=== PATIENT | female | born 1990 | race Caucasian/White ===

== ENCOUNTER 2022-10-19 17:34 | Emergency (ER) | payer OTHER, SELFPAY ==
[2022-10-19 18:47] VITALS: BP 125/80; PULSE 88; RESP 16; TEMP 36.6; O2SAT 98; BMI 32.6
--- NOTE | 2022-10-19 18:47 | ED.ANIMALBIT ---
HPI - Animal Bite General Chief Complaint: Wound/Laceration Stated Complaint: Dog bite on lip Time Seen by Provider: 10/19/22 21:50 Source: patient, RN notes reviewed and old records reviewed Mode of arrival: ambulatory Limitations: no limitations History of Present Illness HPI narrative: 32-year-old female presents for evaluation of a laceration to her lower lip. Patient was trying to put her dog into a truck for She bent down to pick the dog up and it bit her on the lip She sustained a laceration in the lower lip mostly to the right side going to approximately the midline This does involve the vermilion border of the right lower lip Patient's animal is up-to-date on rabies vaccines Her tetanus was updated by triage provider Related Data Previous Rx's Medication Instructions Recorded amoxicillin 875 mg-potassium 1 tab PO BID #14 tabs 10/19/22 clavulanate 125 mg tablet Allergies Allergy/AdvReac Type Severity Reaction Status Date / Time No Known Allergies Allergy Verified 10/19/22 18:49 Review of Systems Integumentary/Breasts: Comments: Right lower lip laceration PMFSH Social History Social History Smoked in Last 30 Days: No Use of substances other than those prescribed or required for medical reasons: No Advance Directives: No Advance Directives Information Provided: No Patient : No Physical Exam ED Vital Signs: Vital Signs - 24 hr 10/19/22 18:47 10/19/22 20:08 Temperature 97.9 F 98.7 F Pulse Rate 88 68 Respiratory Rate 16 16 Blood Pressure 125/80 117/68 Pulse Oximetry 98 100 Oxygen Delivery Method Room Air Room Air BMI result Body Mass Index 32.6 Const General: healthy appearing, comfortable, no acute distress, alert and awake Nutritional Appearance: well nourished Orientation/consciousness: patient oriented x3 HENMT Other: Patient has a v-shaped laceration to the right lower lip that crosses vermilion border. It is not through and through. There is no involvement of the mucosa of the inner lip Eyes Eyelids: Yes eyelids normal Conjunctivae: conjunctivae normal Sclerae: sclerae normal Corneas: corneas normal Pupils: Equal, round and reactive pupils present EOM: EOMs intact bilaterally Resp Effort & Inspection: normal respiratory effort, able to speak in complete sentences and not labored Skin General skin exam: elasticity normal Neuro General: patient oriented x3 Cranial nerves: Yes Equal, round and reactive pupils present and Yes Bilaterally intact EOM present Cognition (Neuro): normal cognition Extrem Other: Moving all extremities well without any obvious deformities Course Course Course Narrative: This is an RME: Additional HPI, ROS, PE not included below will be deferred to primary provider. Patient is a 32-year-old female who presents emergency department evaluation dog bite to the lip, this is her personal animal, up-to-date on rabies vaccination. Has scant active bleeding from the lip. Unsure of last tetanus vaccination. Plan: Update TDap, placed in waiting room pending bed availability for suture repair Reevaluation(s) Reevaluation #1: Patient was offered 1 time dose of Augmentin in the ER and she declined and will slat pickler at the pharmacy as soon as possible Medications Administered Discontinued Medications Generic Name Dose Route Start Last Admin Trade Name Freq PRN Reason Stop Dose Admin Diphtheria/Tetanus/Acell Pertussis 0.5 ml 10/19/22 18:49 10/19/22 20:03 Diphth,Pertus(Acell),Tet Adult 0.5 Ml Syringe IM 10/19/22 18:50 0.5 ml .ONCE ONE Administration Medical Decision Making Medical Decision Making [facility] Narrative: Unfortunately, the patient was bit in the mouth by her own dog. This involves remain border and is a facial injury the and person, despite the fact of the dog bite, we will suture the wound closed. Discussed risks and benefits with the patient. The wound will be extensively irrigated the patient will require Augmentin. Patient's tetanus was up-to-date Differential Diagnosis Dog bite Laceration Puncture wound Skin tear Procedures Laceration Laceration 1: Site: lip (Right lower lip) Side (If applicable): right Size (cm): 3 Description: linear (V-shaped) Depth: simple, single layer Local Anesthetic: lidocaine 1% Amount of anesthesia used (mL): 4 Pre-repair: wound explored and irrigated extensively Skin layer closed with: nylon Size (cm): 6-0 Number of sutures: 6 Discharge Plan Discharge Clinical Impression: Laceration of lower lip, complicated Patient Disposition: Home, Self-Care Instructions: Facial Laceration (ED) Additional Instructions: You had 6 sutures placed today Take Augmentin twice daily for the next 7 days Apply bacitracin once daily to the affected area The sutures can be removed in 5-7 days Dog bites have a very high risk for infection if sutured, however due to the bite being on your lip, not suturing it would have significant cosmetic implications and would likely not heal well. You would benefit from following up with a plastic surgeon to ensure proper healing Unfortunately, we do not have any plastic surgeons at this facility In the meantime, if there is any redness, purulence or increased pain or swelling return to the ER immediately as it is likely infected Your tetanus shot was updated today Prescriptions: New amoxicillin-pot clavulanate 875-125 mg tablet 1 tab PO BID Qty: 14 0RF Stand Alone Forms: Work/School Release
[2022-10-19] MEDS: Diphth,Pertus(ACell),Tet Adult 0.5 ML SYRINGE IM (20:03)
[2022-10-19 20:08] VITALS: BP 117/68; PULSE 68; RESP 16; TEMP 37.1; O2SAT 100
[2022-10-19] MEDS: Lidocaine HCl 1 % MPF 5 ML VIAL INFILTRATI (23:58)
== END 2022-10-19 23:58 | disposition home or self-care (01) ==
PROVIDERS: Emergency Provider Emergency Medicine Emergency Medical Services
DX: S01.551A Open bite of lip, initial encounter (principal); S00.511A Abrasion of lip, initial encounter; W54.0XXA Bitten by dog, initial encounter; Y93.9 Activity, unspecified; Y92.9 Unspecified place or not applicable; Y99.9 Unspecified external cause status; Z23 Encounter for immunization
CPT/HCPCS: 12052; 90471; 90715; 99284

== ENCOUNTER 2023-07-11 16:48 | Emergency (ER) | payer OTHER, SELFPAY ==
--- NOTE | ~2023-07-11 | US_ITS ---
EXAMINATION: US ABDOMEN COMPLETE CLINICAL INFORMATION: Abdominal pain, back pain, . COMPARISON: None available. TECHNIQUE: Real-time imaging of the abdominal viscera. FINDINGS: PANCREAS: The visualized proximal portion of the pancreas is unremarkable. The distal portion is obscured secondary to overlying bowel gas. ABDOMINAL AORTA: The proximal, mid, and distal segments are normal in caliber. INFERIOR VENA CAVA: Visualized portions are normal. LIVER: The liver is normal in size. The liver contour is normal. Parenchymal echogenicity is normal. No focal hepatic lesion. There is no intrahepatic biliary duct dilatation seen. GALLBLADDER: The gallbladder is physiologically distended. Layering gallstones are present. Gallbladder wall thickness is within normal limits. No pericholecystic fluid identified. Right upper quadrant tenderness was reported during the exam. COMMON BILE DUCT: Normal in caliber measuring 0.4 cm in diameter. RIGHT KIDNEY: Mild hydronephrosis. No renal calculi or focal parenchymal lesions. The kidney measures 12.5 cm in maximum dimension. LEFT KIDNEY: No hydronephrosis. No renal calculi or focal parenchymal lesions. The kidney measures 11.4 cm in maximum dimension. SPLEEN: Normal. The spleen measures 11.3 cm in maximum dimension. FREE FLUID: None. US/US abdomen complete IMPRESSION: 1. Cholelithiasis without additional sonographic findings of cholecystitis. However, right upper quadrant tenderness was reported during the exam, and the possibility of early acute cholecystitis therefore cannot be excluded in the proper clinical setting. 2. Mild right hydronephrosis, which may be physiologic in the setting of .
--- NOTE | ~2023-07-11 | US_ITS ---
EXAMINATION: US , LIMITED CLINICAL INFORMATION: 19 weeks , abdominal pain, eval move COMPARISON: None available. TECHNIQUE: Limited sonographic evaluation of was performed. FINDINGS: Single live intrauterine is identified in breech presentation at this time. movement is observed. heart beat is identified with a rate of 149 bpm. Placenta is located posteriorly. Cervix appears closed. Amniotic fluid index is 17.0 cm. US/US OB limited IMPRESSION: Single live intrauterine , with movement observed.
[2023-07-11 16:56] VITALS: BP 106/50; PULSE 73; RESP 20; TEMP 37; O2SAT 100; BMI 33.2
--- NOTE | 2023-07-11 16:57 | ED.GENADULT ---
HPI - General Adult General Chief complaint: Nausea/Vomiting/Diarrhea Stated complaint: vomiting severe back pain 19 wks Time Seen by Provider: 07/11/23 18:24 Source: patient Mode of arrival: ambulatory Limitations: no limitations History of Present Illness HPI narrative: 32 yo female with no known medical history here with complaints of vomiting, diffuse abdominal pain, mid back pain x 30 min-1hr. At 115pm she did have mac/cheese, blueberries, taquito and green beans. No sick contact or recent travel. No urinary symptoms, vaginal bleeding. Currently 19 weeks . XIOMARA 12/03. This is her first , no complications with this . Her care is at [facility] Related Data Previous Rx's Medication Instructions Recorded amoxicillin 875 mg-potassium 1 tab PO BID #14 tabs 10/19/22 clavulanate 125 mg tablet ondansetron 4 mg disintegrating 4 mg PO Q6H PRN nausea and 07/12/23 tablet vomiting #15 tabs Allergies Allergy/AdvReac Type Severity Reaction Status Date / Time No Known Allergies Allergy Verified 10/19/22 18:49 Review of Systems Review of Systems: Yes all other systems are reviewed and are negative Constitutional: Constitutional: Reports no additional constitutional complaints, Denies body ache(s), Denies chills, Denies fever(s), Denies headache(s) and Denies weakness Eyes: Eyes: Reports no additional eye complaints and Denies change in vision ENT: Reports system reviewed and no additional complaints, except as documented, Denies dizziness, Denies headache(s), Denies nasal congestion, Denies nasal discharge and Denies neck pain Cardiovascular: Cardiovascular: Reports no additional cardiovascular complaints, Denies chest pain, Denies leg edema and Denies dyspnea Respiratory: Respiratory: Reports no additional respiratory complaints, Denies cough and Denies dyspnea Gastrointestinal: Gastrointestinal: Reports no additional gastrointestinal complaints, Reports abdominal pain, Denies diarrhea, Reports nausea and Reports vomiting Genitourinary: Genitourinary: Reports no additional female genitourinary complaints and Denies urinary incontinence Musculoskeletal: Musculoskeletal: Reports no additional musculoskeletal complaints, Reports back pain, Denies arthralgias, Denies joint swelling, Denies neck pain, Denies numbness and Denies tingling Integumentary/Breasts: Skin/Breast: Reports system reviewed and no additional complaints, except as docu and Denies rash Neurologic: Reports system reviewed and no additional complaints, except as documented, Denies Abnormal speech present, Denies dizziness, Denies headache(s), Denies numbness, Denies tingling and Denies weakness PMFSH Past Medical History Attestation statement: The following information was validated with the patient. Source: old records reviewed and nursing notes reviewed Social History Social History Smoked in Last 30 Days: No Use of substances other than those prescribed or required for medical reasons: No Advance Directives: No Advance Directives Information Provided: No Patient : Yes Physical Exam ED Vital Signs: Vital Signs - 24 hr 07/11/23 16:56 07/11/23 18:27 07/11/23 20:48 Temperature 98.6 F 98.1 F 98.5 F Pulse Rate 73 64 59 Respiratory Rate 20 16 16 Blood Pressure 106/50 L 98/55 L Pulse Oximetry 100 100 97 Oxygen Delivery Method Room Air Room Air Room Air 07/11/23 22:00 07/12/23 00:39 Temperature 99.1 F 99.1 F Pulse Rate 63 75 Respiratory Rate 16 16 Blood Pressure 98/46 L 109/55 L Pulse Oximetry 98 99 Oxygen Delivery Method Room Air Room Air BMI result Body Mass Index 33.2 Const General: cooperative, healthy appearing, comfortable and no acute distress Orientation/consciousness: patient oriented x3 Limitations: no limitations HENMT Head: Yes normal to inspection Ears: hearing grossly normal bilaterally General nose exam: Normal external nose present Face and sinus: Yes normal facial exam Mouth: Normal oral and palatal mucosa present Throat: Yes posterior oropharynx normal Eyes General: appearance normal, both eyes and all related structures Pupils: Equal, round and reactive pupils present Neck Neck: Yes normal visual inspection Chest Chest palpation & inspection: normal inspection of the chest Resp Effort & Inspection: normal respiratory effort Auscultation: clear to auscultation bilaterally Cardio Rate: regular rate Rhythm: regular rhythm Peripheral pulses: Peripheral pulses 2+ throughout GI Inspection: Yes normal to inspection Palpation (GI): Soft to palpation, Tenderness to palpation present (GI) (upper-no rebound or guarding ) and no guarding Auscultation: normal bowel sounds General: Yes no CVA tenderness Back/Spine/Pelvis Back: no CVA tenderness Thoracic/Lumbar Spine: thoracic and lumbar spine normal to inspection Skin General skin exam: no rashes or lesions noted Neuro General: patient oriented x3, no focal motor deficits and normal sensation to monofilament Cranial nerves: Yes Equal, round and reactive pupils present Cognition (Neuro): normal cognition Speech: No Abnormal speech present Gait exam (Neuro): Normal gait present Motor exam (neuro): 5/5 motor strength present throughout Extrem General: Yes normal to inspection Course Course Course Narrative: This is a rapid medical exam: Additional HPI, ROS, PE not included below will be deferred to primary provider. Patient is a 32-year-old female 19 weeks with XIOMARA of 12/03/23 presenting to the ED with complaint of persistent vomiting for the past 30 minutes. [place] nauseated for about 30-45 minutes prior to vomiting. Ate macaroni and cheese and green beans which patient states may have been too old for lunch. Diffuse abdominal pain. States has not felt movements so far in her . BP 106/50 in triage, HR 72. care at [facility]. Has had 12 week u/s. heart rate 148 in triage. Plan: viral swabs, labs, UA, zofran Reevaluation(s) Reevaluation #1: 1900-continued pain and vomiting. Will obtain ultrasound. Will premedicate with analgesia and antiemetic. Reevaluation #2: 1945-initial lactic was elevated. 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 This is likely secondary to vomiting and not from infection. Will plan for repeat after fluids. Ultrasound shows gallstones with no evidence of acute cholecystitis. Single intrauterine seen on ultrasound with good movement heart rate 149. Patient reports after 4 mg of morphine and 2 rounds of antiemetics relief in pain. Will plan to monitor and reassess Reevaluation #3: 0000-repeat lactic is negative. Patient is able to tolerate amairani dani with no additional vomiting episodes. Her pain is much improved. I reviewed the findings of her ultrasound. Recommend follow-up outpatient general surgery. Discussed dietary changes at home and when to return to the emergency room. Comfortable plan for discharge home Medications Administered Discontinued Medications Generic Name Dose Route Start Last Admin Trade Name Freq PRN Reason Stop Dose Admin Diphenhydramine HCl 25 mg 07/11/23 19:02 07/11/23 19:19 Diphenhydramine Hcl 50 Mg/Ml Vial IVPUSH 07/11/23 19:03 25 mg ONCE ONE Administration Sodium Chloride 1,000 mls @ 999 mls/hr 07/11/23 18:30 07/11/23 19:40 Ns IV 07/11/23 19:30 Infused .Q1H1M DAMI Infusion Sodium Chloride 1,000 mls @ 999 mls/hr 07/11/23 19:45 07/11/23 21:03 Ns IV 07/11/23 20:45 Infused .Q1H1M STA Infusion Metoclopramide HCl 10 mg 07/11/23 19:02 07/11/23 19:18 Metoclopramide Hcl 10 Mg/2 Ml Vial IVPUSH 07/11/23 19:03 10 mg ONCE ONE Administration Morphine Sulfate 2 mg 07/11/23 18:29 07/11/23 18:35 Morphine Sulfate 2 Mg/Ml Cartridge IVPUSH 07/11/23 18:30 2 mg ONCE ONE Administration Protocol Morphine Sulfate 2 mg 07/11/23 19:02 07/11/23 19:22 Morphine Sulfate 2 Mg/Ml Cartridge IVPUSH 07/11/23 19:03 2 mg ONCE ONE Administration Protocol Ondansetron HCl 4 mg 07/11/23 17:03 07/11/23 17:18 Ondansetron Odt 4 Mg Tab.Rapdis TRANSLINGU 07/11/23 17:04 4 mg ONCE ONE Administration Ondansetron HCl 4 mg 07/11/23 18:29 07/11/23 18:35 Ondansetron Hcl 4 Mg/2 Ml Vial IVPUSH 07/11/23 18:30 4 mg ONCE ONE Administration Medical Decision Making Medical Decision Making MDM Narrative: 32 yo female with no known medical history here with complaints of vomiting, upper abdominal pain, mid back pain x 30 min-1hr. At 115pm she did have mac/cheese, blueberries, taquito and green beans. No sick contact or recent travel. No urinary symptoms, vaginal bleeding. Currently 19 weeks . XIOMARA 8. This is her first , no complications with this . Her care is at [facility] Diffusely tender. No CVAT Will obtain UA, labs Will give IVF, antiemetic, analgesia Differential Diagnosis Differential Diagnoses: The differential diagnosis associated with the presentation includes Low suspicion for acute appendicitis with no focal right lower quadrant abdominal pain Consider renal colic, pyelonephritis, cholecystitis Admission/Observation Consideration of admission/observation: Escalation of care including admission/observation considered Gallstones seen on ultrasound with no evidence of acute cholecystitis. Pain is improved, tolerating p.o., afebrile. She can follow-up outpatient with General surgery. No need for admission Lab Data MDM Lab Attestation statement: I reviewed the patient's lab results. 07/11/23 17:10 07/11/23 17:10 Labs: Lab Results 07/11/23 07/11/23 07/11/23 Range/Units 17:10 17:21 21:47 WBC 10.2 (4.8-10.8) X10*3/uL RBC 4.21 (4.20-5.50) X10*6/uL Hgb 12.1 (12.0-16.0) g/dl Hct 36.4 L (37.0-47.0) % MCV 86.5 (80.0-98.0) fL MCH 28.7 (27.0-33.0) pg MCHC 33.2 (31.0-35.0) g/dl RDW 13.8 (11.0-16.0) % Plt Count 200 (160-400) X10*3/uL MPV 10.7 (9.4-12.3) fL Immature Gran % (Auto) 0.7 H (0.0-0.4) % Neut % (Auto) 65.5 (45-73) % Lymph % (Auto) 24.3 (20-40) % Simpson % (Auto) 8.1 (2-11) % Eos % (Auto) 1.1 (0-4) % Baso % (Auto) 0.3 (0-2) % Lymph # (Auto) 2.5 (1.2-4.9) X10*3/uL Simpson # (Auto) 0.8 (0.1-1.2) X10*3/uL Eos # (Auto) 0.1 (0.0-0.4) X10*3/uL Baso # (Auto) 0.0 (0.0-0.2) X10*3/uL Abs Immat Gran (auto) 0.07 H (0.00-0.03) X10*3/uL Absolute Neuts (auto) 6.7 (2.0-8.3) x10*3/uL Absolute Nucleated RBC 0.000 (0.0-0.012) X10*3/uL Nucleated RBC % (auto) 0.0 (0.0-0.2) /100WBC Sodium 140 (135-145) mmol/L Potassium 3.6 (3.3-5.1) mmol/L Chloride 108 (96-108) mmol/L Carbon Dioxide 24 (22-29) mmol/L Anion Gap 12 (12-20) BUN 10 (9-16) mg/dL Creatinine 0.73 (0.5-1.4) mg/dL Estim Creat Clear Calc 117.6 Estimated GFR > 60 Random Glucose 97 (60-115) mg/dL Lactic Acid 3.4 H* (0.5-2.0) mmol/L Lactic Acid F/U @ 2Hr 2.5 H* (0.5-2.0) mmol/L Lactic Acid F/U @ 4Hr (0.5-2.0) mmol/L Calcium 9.4 (8.4-10.2) mg/dL Magnesium 1.7 (1.6-2.6) mg/dL Total Bilirubin 0.1 (0.0-1.0) mg/dL AST 27 (5-31) U/L ALT 59 H (0-31) U/L Alkaline Phosphatase 70 (39-117) U/L Total Protein 6.7 (6.5-8.0) g/dL Albumin 3.5 (3.5-5.0) g/dL Urine Color Urine Appearance Urine pH (5.0-9.0) Ur Specific [place] (1.005-1.025) Urine Protein (Neg-Trace) mg/dL Urine Glucose (UA) (Negative) mg/dL Urine Ketones (Negative) mg/dL Urine Blood (Negative) Urine Nitrite (Negative) Ur Leukocyte Esterase (Negative) Urine RBC (0-2) /HPF Urine WBC (0-5) /HPF Ur Squamous Epith Cells (0-2) /HPF Urine Bacteria (None Seen) Hyaline Casts (0-2) /LPF Influenza Type A (PCR) NEGATIVE (Negative) Influenza Type B (PCR) NEGATIVE (Negative) RSV RNA Qual (PCR) NEGATIVE (Negative) SARS-CoV-2 RNA (RT-PCR) NEGATIVE (Negative) 07/11/23 07/12/23 Range/Units 22:05 00:14 WBC (4.8-10.8) X10*3/uL RBC (4.20-5.50) X10*6/uL Hgb (12.0-16.0) g/dl Hct (37.0-47.0) % MCV (80.0-98.0) fL MCH (27.0-33.0) pg MCHC (31.0-35.0) g/dl RDW (11.0-16.0) % Plt Count (160-400) X10*3/uL MPV (9.4-12.3) fL Immature Gran % (Auto) (0.0-0.4) % Neut % (Auto) (45-73) % Lymph % (Auto) (20-40) % Simpson % (Auto) (2-11) % Eos % (Auto) (0-4) % Baso % (Auto) (0-2) % Lymph # (Auto) (1.2-4.9) X10*3/uL Simpson # (Auto) (0.1-1.2) X10*3/uL Eos # (Auto) (0.0-0.4) X10*3/uL Baso # (Auto) (0.0-0.2) X10*3/uL Abs Immat Gran (auto) (0.00-0.03) X10*3/uL Absolute Neuts (auto) (2.0-8.3) x10*3/uL Absolute Nucleated RBC (0.0-0.012) X10*3/uL Nucleated RBC % (auto) (0.0-0.2) /100WBC Sodium (135-145) mmol/L Potassium (3.3-5.1) mmol/L Chloride (96-108) mmol/L Carbon Dioxide (22-29) mmol/L Anion Gap (12-20) BUN (9-16) mg/dL Creatinine (0.5-1.4) mg/dL Estim Creat Clear Calc Estimated GFR Random Glucose (60-115) mg/dL Lactic Acid (0.5-2.0) mmol/L Lactic Acid F/U @ 2Hr (0.5-2.0) mmol/L Lactic Acid F/U @ 4Hr 1.2 (0.5-2.0) mmol/L Calcium (8.4-10.2) mg/dL Magnesium (1.6-2.6) mg/dL Total Bilirubin (0.0-1.0) mg/dL AST (5-31) U/L ALT (0-31) U/L Alkaline Phosphatase (39-117) U/L Total Protein (6.5-8.0) g/dL Albumin (3.5-5.0) g/dL Urine Color Yellow Urine Appearance Turbid Urine pH 7.5 (5.0-9.0) Ur Specific [place] 1.015 (1.005-1.025) Urine Protein Trace (Neg-Trace) mg/dL Urine Glucose (UA) 250 H (Negative) mg/dL Urine Ketones 80 (Negative) mg/dL Urine Blood Negative (Negative) Urine Nitrite Negative (Negative) Ur Leukocyte Esterase Small (1+) H (Negative) Urine RBC 0-2 (0-2) /HPF Urine WBC 0-5 (0-5) /HPF Ur Squamous Epith Cells 6-10 (0-2) /HPF Urine Bacteria 1+ (None Seen) Hyaline Casts 6-10 (0-2) /LPF Influenza Type A (PCR) (Negative) Influenza Type B (PCR) (Negative) RSV RNA Qual (PCR) (Negative) SARS-CoV-2 RNA (RT-PCR) (Negative) Independent Interpretation I performed an independent interpretation of an: Ultrasound Interpretation: I independently reviewed the ultrasound agree with the radiology report Radiology Impression Discussion of test interpretation with radiology: I have reviewed the radiologist's reading. Radiologist Impression: [address] [address] Ultrasound Report Signed Patient: Cheli Decker MR#: [id number] : 1990 Acct:[id number] Age/Sex: 32 / F ADM Date: 07/11/23 Loc: .ED Attending Dr: Ordering Physician: Taryn Reece NP Date of Service: 07/11/23 Procedure(s): US OB limited Accession Number(s): [id number] cc: Physician,Unknown ; Taryn Reece [employer]WER CLEANER~ EXAMINATION: US , LIMITED CLINICAL INFORMATION: 19 weeks , abdominal pain, eval move COMPARISON: None available. TECHNIQUE: Limited sonographic evaluation of was performed. FINDINGS: Single live intrauterine is identified in breech presentation at this time. movement is observed. heart beat is identified with a rate of 149 bpm. Placenta is located posteriorly. Cervix appears closed. Amniotic fluid index is 17.0 cm. US/US OB limited IMPRESSION: Single live intrauterine , with movement observed. [place] [id number] Ultrasound Report Signed Patient: Cheli Decker MR#: [id number] : 1990 Acct:[id number] Age/Sex: 32 / F ADM Date: 07/11/23 Loc: HO.ED Attending Dr: Ordering Physician: Taryn Reece NP Date of Service: 07/11/23 Procedure(s): US abdomen complete Accession Number(s): [id number] cc: Physician,Unknown ; Taryn Reece [employer]WER CLEANER~ EXAMINATION: US ABDOMEN COMPLETE CLINICAL INFORMATION: Abdominal pain, back pain, . COMPARISON: None available. TECHNIQUE: Real-time imaging of the abdominal viscera. FINDINGS: PANCREAS: The visualized proximal portion of the pancreas is unremarkable. The distal portion is obscured secondary to overlying bowel gas. ABDOMINAL AORTA: The proximal, mid, and distal segments are normal in caliber. INFERIOR VENA CAVA: Visualized portions are normal. LIVER: The liver is normal in size. The liver contour is normal. Parenchymal echogenicity is normal. No focal hepatic lesion. There is no intrahepatic biliary duct dilatation seen. GALLBLADDER: The gallbladder is physiologically distended. Layering gallstones are present. Gallbladder wall thickness is within normal limits. No pericholecystic fluid identified. Right upper quadrant tenderness was reported during the exam. COMMON BILE DUCT: Normal in caliber measuring 0.4 cm in diameter. RIGHT KIDNEY: Mild hydronephrosis. No renal calculi or focal parenchymal lesions. The kidney measures 12.5 cm in maximum dimension. LEFT KIDNEY: No hydronephrosis. No renal calculi or focal parenchymal lesions. The kidney measures 11.4 cm in maximum dimension. SPLEEN: Normal. The spleen measures 11.3 cm in maximum dimension. FREE FLUID: None. US/US abdomen complete IMPRESSION: 1. Cholelithiasis without additional sonographic findings of cholecystitis. However, right upper quadrant tenderness was reported during the exam, and the possibility of early acute cholecystitis therefore cannot be excluded in the proper clinical setting. 2. Mild right hydronephrosis, which may be physiologic in the setting of . Independent Historian Clinical information obtained from an independent historian. History obtained from or confirmed by: Spouse Discharge Plan Discharge Clinical Impression: Cholelithiasis Patient Disposition: Home, Self-Care Instructions: Gallstones (ED) Additional Instructions: Your ultrasound shows gallstones. Please eat a very low-fat diet. Please return for any severe abdominal pain, vomiting or fever. Prescriptions: New ondansetron 4 mg tablet,disintegrating 4 mg PO Q6H PRN (Reason: nausea and vomiting) Qty: 15 0RF No Action amoxicillin-pot clavulanate 875-125 mg tablet 1 tab PO BID Qty: 14 0RF Referrals: John Mayo MD [Physician] - 1 week Physician,Unknown J [Primary Care Provider] - 1 week
[2023-07-11 17:16] LABS: MANUAL DIFF FLAG NO
[2023-07-11 17:17] LABS: Basophils Percent Auto 0.3 % (0-2); Eosinophils Absolute Auto 0.1 X10*3/uL (0.0-0.4); Eosinophils Percent Auto 1.1 % (0-4); Hematocrit 36.4 % (37.0-47.0); Hemoglobin 12.1 g/dl (12.0-16.0); Imm Gran Abs Auto 0.07 X10*3/uL (0.00-0.03); Imm Gran Pct Auto 0.7 % (0.0-0.4); Lymphocytes Absolute Auto 2.5 X10*3/uL (1.2-4.9); Lymphocytes Percent Auto 24.3 % (20-40); Mean Corpuscular HGB Conc 33.2 g/dl (31.0-35.0); Mean Corpuscular Hemoglobin 28.7 pg (27.0-33.0); Mean Corpuscular Volume 86.5 fL (80.0-98.0); Mean Platelet Volume 10.7 fL (9.4-12.3); Monocytes Absolute Auto 0.8 X10*3/uL (0.1-1.2); Monocytes Percent Auto 8.1 % (2-11); Neutrophils Absolute Auto 6.7 x10*3/uL (2.0-8.3); Neutrophils Percent Auto 65.5 % (45-73); Platelet Count 200 X10*3/uL (160-400); Red Blood Count 4.21 X10*6/uL (4.20-5.50); Red Cell Distribution Width 13.8 % (11.0-16.0); White Blood Count 10.2 X10*3/uL (4.8-10.8)
[2023-07-11] MEDS: Ondansetron ODT 4 MG TAB.RAPDIS TRANSLINGU (17:18)
--- NOTE | 2023-07-11 17:21 | PC.NURSE ---
FHR obtained in triage - HR 148
[2023-07-11 17:30] LABS: Alanine Aminotransferase 59 U/L (0-31); Albumin Level 3.5 g/dL (3.5-5.0); Alkaline Phosphatase 70 U/L (39-117); Anion Gap 12 (12-20); Aspartate Amino Transferase 27 U/L (5-31); Bilirubin Total 0.1 mg/dL (0.0-1.0); Blood Urea Nitrogen 10 mg/dL (9-16); Calcium 9.4 mg/dL (8.4-10.2); Carbon Dioxide 24 mmol/L (22-29); Chloride 108 mmol/L (96-108); Creatinine Clr Calc Pharmacy 117.6; Estimated Glomerular Filt Rate > 60; Glucose Random 97 mg/dL (60-115); Magnesium 1.7 mg/dL (1.6-2.6); Potassium 3.6 mmol/L (3.3-5.1); Sodium 140 mmol/L (135-145); Total Protein 6.7 g/dL (6.5-8.0)
[2023-07-11 18:22] LABS: Influenza A PCR NEGATIVE (Negative); Influenza B PCR NEGATIVE (Negative); Resp Syncy Virus RNA Qual PCR NEGATIVE (Negative); SARS COV2 PCR INHOUSE NEGATIVE (Negative)
[2023-07-11 18:27] VITALS: PULSE 64; RESP 16; TEMP 36.7; O2SAT 100
[2023-07-11] MEDS: 0.9 % Sodium Chloride 1,000 ML 999 ML IV ×2 (18:35→20:08)
[2023-07-11] MEDS: Morphine Sulfate 2 MG/ML CARTRIDGE IVPUSH ×2 (18:35→19:22)
[2023-07-11] MEDS: ondansetron HCL 4 MG/2 ML VIAL IVPUSH (18:35)
--- NOTE | 2023-07-11 18:39 | PC.NURSE ---
20gIV placed in the left hand - medication/IVF administered per provider order. effectiveness pending.
--- NOTE | 2023-07-11 19:09 | MHC.EDTECH ---
Patient a very difficult draw ,other pct will tried to draw lactic acid .
[2023-07-11] MEDS: Metoclopramide HCl 10 MG/2 ML VIAL IVPUSH (19:18)
[2023-07-11] MEDS: diphenhydrAMINE HCL 50 MG/ML VIAL 25 MG IVPUSH (19:19)
--- NOTE | 2023-07-11 19:25 | PC.NURSE ---
assumed care of patient at 1900 - pt actively vomiting. partner at bedside. pt medicated per mar with Reglan, Benadryl and morphine - ultrasound at bedside performing exam. call valle within reach, plan of care ongoing
[2023-07-11 19:46] LABS: Lactic Acid 3.4 mmol/L (0.5-2.0)
[2023-07-11 20:48] VITALS: BP 98/55; PULSE 59; RESP 16; TEMP 36.9; O2SAT 97
[2023-07-11 21:20] LABS: Reflex Lactate? Lactic Acid Added
[2023-07-11 22:00] VITALS: BP 98/46; PULSE 63; RESP 16; TEMP 37.3; O2SAT 98
[2023-07-11 22:10] LABS: ~Lactic Acid-LAB USE ONLY 2.5 mmol/L (0.5-2.0)
[2023-07-11 22:12] LABS: Appearance Urine Turbid; Color Urine Yellow; Glucose Urine UA 250 mg/dL (Negative); Leukocyte Esterase Urine Small (1+) (Negative); Nitrite Urine Negative (Negative); PH 7.5 (5.0-9.0); Specific Gravity - Urine 1.015 (1.005-1.025); UMIC TRIGGER UACC YES; Urine Blood Negative (Negative); Urine Ketones 80 mg/dL (Negative); Urine Protein Trace mg/dL (Neg-Trace)
[2023-07-11 22:48] LABS: Bacteria Urine 1+ (None Seen); RBC Urine 0-2 /HPF (0-2); UACC Culture Trigger YES; WBC Urine 0-5 /HPF (0-5)
[2023-07-11 23:53] LABS: Reflex Lactate? 2 Y
[2023-07-12 00:36] LABS: ~Lactic Acid-LAB USE ONLY 1.2 mmol/L (0.5-2.0)
[2023-07-12 00:39] VITALS: BP 109/55; PULSE 75; RESP 16; TEMP 37.3; O2SAT 99
[2023-07-12 01:18] VITALS: BP 109/55; PULSE 75; RESP 16; TEMP 37.3; O2SAT 99
== END 2023-07-12 01:19 | disposition home or self-care (01) ==
PROVIDERS: Nurse Practitioner Family; Registered Nurse Emergency; Emergency Provider Internal Medicine
DX: O99.612 Diseases of the digestive system complicating pregnancy, second trimester (principal); K80.20 Calculus of gallbladder without cholecystitis without obstruction; O21.9 Vomiting of pregnancy, unspecified; O26.892 Other specified pregnancy related conditions, second trimester; Z3A.19 19 weeks gestation of pregnancy; R10.9 Unspecified abdominal pain; M54.6 Pain in thoracic spine; Z11.52 Encounter for screening for COVID-19; Z20.828 Contact with and (suspected) exposure to other viral communicable diseases
CPT/HCPCS: 0241U; 36415; 76700; 76815; 80053; 81001; 83605; 83735; 85025; 87086; 96361; 96374; 96375; 96376; 99285; J1200; J2270; J2405; J2765

== ENCOUNTER 2023-07-15 11:18 | Inpatient (IN) | payer OTHER, SELFPAY ==
--- NOTE | ~2023-07-15 | US_ITS ---
EXAMINATION: US , LIMITED CLINICAL INFORMATION: History of laparoscopic cholecystectomy. Confirm viability, heart rate. COMPARISON: 07/11/2023. TECHNIQUE: Sonographic imaging of the pelvis is performed using a transabdominal transducer. FINDINGS: A limited imaging evaluation reveals a single viable intrauterine gestation with heart rate of 143 bpm. The volume of amniotic fluid is normal. A homogeneous posterior placenta is partially included in the [id number]. No evidence of pelvic free fluid. US/US OB limited IMPRESSION: Single viable intrauterine gestation is present.
--- NOTE | ~2023-07-15 | US_ITS ---
EXAMINATION: US ABDOMEN GALLBLADDER ONLY CLINICAL INFORMATION: Right upper quadrant pain.. COMPARISON: Ultrasound abdomen July 11, 2019 TECHNIQUE: Real-time imaging of the gallbladder and CBD. FINDINGS: Gallbladder: Numerous small gallstones layering dependently in the gallbladder. There is gallbladder wall thickening measuring 1 cm. Fluid in the gallbladder wall. There is also pericholecystic fluid. These changes are consistent with acute cholecystitis. Common bile duct: No dilatation of the common bile duct. Common bile duct measures 0.3 cm. US/US abdomen limited IMPRESSION: Cholelithiasis. Findings consistent with acute cholecystitis.
[2023-07-15 11:49] VITALS: BP 125/53; PULSE 85; RESP 20; TEMP 37.1; O2SAT 98; BMI 23.4
--- NOTE | 2023-07-15 11:53 | ED.SKABFB ---
HPI - Skin/Abscess/Foreign Bdy General Chief complaint: Skin/Abscess/Foreign Body Stated complaint: Itchiness all over body Time Seen by Provider: 07/15/23 12:27 Source: patient Mode of arrival: ambulatory Limitations: no limitations History of Present Illness HPI narrative: Patient is a 32 year old female, with a recent diagnosis of cholelithiasis (07/11/23), presents to the ED with generalized pruritus for the past 10 hours. Patient reports that she is 19 weeks and was having abdominal pain with associated nausea and vomiting at the end of last week. Today she woke up at 3 am and has been itchy all over her body including her palms and soles. Patient endorses associated headaches, nausea, vomiting and abdominal discomfort when she attempted to eat dinner last night. Patient denies recent exposure to new detergents/fabrics/allergens, fever/chills, lightheadedness, dizziness, SOB, chest pain, changes to vision, joint/body aches, and changes to bowel habits. Prior to arrival patient endorses taking claritin and montelukast to help with the itchiness with no relief. MD complaint: other (widespread pruritus ) Onset (ago): hour(s) (10) Location: generalized Severity: mild Severity scale (1-10): 4 Quality: pruritic Pain Consistency: constant Relieving factors: none Exacerbating factors: none Context: new medication (Ondansetron) and other (Recent cholelithiasis Dx) Associated symptoms: nausea, vomiting and other (headaches) Treatments prior to arrival: other (Claritin and montelukast) Related Data Home Medications Medication Instructions Recorded Confirmed aspirin 81 mg chewable tablet 162 mg PO BEDTIME 07/15/23 07/15/23 famotidine 40 mg tablet 40 mg PO BEDTIME 07/15/23 07/15/23 loratadine 10 mg tablet (Claritin) 10 mg PO DAILY 07/15/23 07/15/23 montelukast 10 mg tablet 10 mg PO BEDTIME 07/15/23 07/15/23 pyridoxine (vitamin B6) 50 mg 50 mg PO BEDTIME 07/15/23 07/15/23 tablet Previous Rx's Medication Instructions Recorded ondansetron 4 mg disintegrating 4 mg PO Q6H PRN nausea and 07/12/23 tablet vomiting #15 tabs Allergies Allergy/AdvReac Type Severity Reaction Status Date / Time No Known Allergies Allergy Verified 07/15/23 11:55 Review of Systems Constitutional: Constitutional: Reports no additional constitutional complaints, Denies chills, Denies fever(s) and Denies night sweats Eyes: Eyes: Reports no additional eye complaints, Denies blurry vision, Denies change in vision, Denies diplopia, Denies eye discharge, Denies loss of vision and Denies eye pain ENT: Denies dizziness Cardiovascular: Cardiovascular: Reports no additional cardiovascular complaints, Denies chest pain, Denies lightheadedness, Denies Loss of Consciousness and Denies dyspnea Respiratory: Respiratory: Reports no additional respiratory complaints and Denies dyspnea Gastrointestinal: Gastrointestinal: Reports no additional gastrointestinal complaints, Reports abdominal pain, Denies melena, Denies hematochezia, Denies change in bowel habits, Denies change in stool character and Reports nausea Genitourinary: Genitourinary: Denies hematuria, Denies urinary frequency, Denies dysuria, Denies urinary incontinence, Denies urinary hesitancy and Denies urinary urgency Musculoskeletal: Musculoskeletal: Reports no additional musculoskeletal complaints, Denies numbness and Denies tingling Neurologic: Denies dizziness, Denies loss of vision, Denies numbness and Denies tingling Psychiatric: Psychiatric: Reports no additional psychiatric complaints Endocrine: Endocrine: Reports no additional endocrine complaints Hematologic/Lymphatic: Hematologic/Lymphatic: Reports no additional hematologic/lymphatic complaints Allergic/Immunologic: Allergic/Immunologic: Reports no additional allergic/immunologic complaints PMFSH Past Medical History Attestation statement: The following information was validated with the patient. Source: old records reviewed and nursing notes reviewed Social History Social History Advance Directives: No Advance Directives Information Provided: No Physical Exam Vital Signs: Vital Signs: Last Vital Signs Temp 98.8 F 07/15/23 11:49 Pulse 87 07/15/23 15:02 Resp 16 07/15/23 15:02 BP 120/51 L 07/15/23 15:02 Pulse Ox 99 07/15/23 15:02 O2 Del Method Room Air 07/15/23 15:02 BMI result Body Mass Index 23.4 Const: General: cooperative, no acute distress, alert and awake Nutritional Appearance: average body habitus Orientation/consciousness: patient oriented x3 Limitations: no limitations HEENT: Head: Yes normal to inspection Ears: hearing grossly normal bilaterally General nose exam: Normal external nose present Face and sinus: Yes erythema (general facial erythema) Mouth: Normal oral and palatal mucosa present Throat: Yes posterior oropharynx normal Eyes: General: appearance normal, both eyes and all related structures Periorbital: periorbital findings normal Eyelids: Yes eyelids normal Conjunctivae: conjunctivae normal Pupils: Equal, round and reactive pupils present EOM: EOMs intact bilaterally Neck: Neck: Yes normal visual inspection Chest: Chest palpation & inspection: normal inspection of the chest Resp: Effort & Inspection: normal respiratory effort and able to speak in complete sentences Auscultation: clear to auscultation bilaterally Cardio: Jugular venous distension: no JVD Palpation: normal PMI Rate: regular rate Rhythm: regular rhythm GI: Inspection: Yes normal to inspection Palpation (GI): not soft, Firmness to palpation present (GI) in the RUQ, nontender, no guarding and not rigid Skin: General skin exam: jaundice (mild, generalized) Neuro: General: patient oriented x3 Cranial nerves: Yes Equal, round and reactive pupils present Cognition (Neuro): normal cognition Motor exam (neuro): 5/5 motor strength present throughout Sensory Exam: Normal double simultaneous stimulation for sensation Coordination: [id number] test normal Extrem: General: Yes normal to inspection, Yes full ROM and Yes capillary refill normal Psych: Appearance: grossly normal Mental Status: mental status grossly normal Affect: normal affect Attitude: cooperative Thought process: Normal thought process present Thought content: Normal thought content present Insight: Good insight present (Psych) Course Course Course Narrative: This is an RME: Additional HPI, ROS, PE not included below will be deferred to primary provider. This is a 32-year-old female, 19 weeks , presenting to the emergency department for evaluation of diffuse body itching. Patient was seen several days ago with a ?gallbladder attack?. She states that she has had itching throughout her whole body. She is currently on Claritin, which he has been taking with minimal relief. No new soaps, lotions, detergents. She has been taking Zofran since Thursday. No difficulty swallowing or breathing. Plan: Basic labs, further ER evaluation needed. Medical Decision Making Medical Decision Making MDM Narrative: Patient is a 32 year old assigned female at with a history of being currently 19 weeks presenting to the emergency department today with diffuse itchiness, RUQ abdominal pain, and nausea. Patient's physical exam was as noted in the physical exam portion of this note. Patient's blood work showed a marked increase of her LFTs compared to 07/12/2023 but were otherwise unremarkable. Patient's urine showed no acute process. Patient's abdominal US on 07/11/2023 showed cholelithiasis without cholecystitis. Given the patient's current presentation, there was concern for CBD obstruction. I consulted with GI who recommended a repeat RUQ US. Repeat US showed cholecystitis with a normal CBD. I spoke with the general surgeon who agreed to admission for cholecystitis. I explained my physical exam findings as well as all test results to the patient. I answered all questions asked by the patient. Patient verbalized agreement and understanding with this treatment plan and admission. Differential Diagnosis Differential Diagnoses: The differential diagnosis associated with the presentation includes Cholelithiasis Cholecystitis Choledocolithiasis Admission/Observation Consideration of admission/observation: Escalation of care including admission/observation considered Patient admitted to the surgical service. Consult Healthcare Provider Management of the patient was discussed with: Animal Assistant (spoke to the GI and general surgery teams as noted in the MDM Rationale portion of this note.) Lab Data [facility] Lab Attestation statement: I reviewed the patient's lab results. My interpretation of these results are in the MDM Rationale portion of this note. 07/15/23 12:07 07/15/23 12:07 Labs: Lab Results 07/15/23 Range/Units 12:07 WBC 7.0 (4.8-10.8) X10*3/uL RBC 4.16 L (4.20-5.50) X10*6/uL Hgb 12.0 (12.0-16.0) g/dl Hct 35.5 L (37.0-47.0) % MCV 85.3 (80.0-98.0) fL MCH 28.8 (27.0-33.0) pg MCHC 33.8 (31.0-35.0) g/dl RDW 13.5 (11.0-16.0) % Plt Count 217 (160-400) X10*3/uL MPV 10.6 (9.4-12.3) fL Immature Gran % (Auto) 0.7 H (0.0-0.4) % Neut % (Auto) 70.9 (45-73) % Lymph % (Auto) 17.8 L (20-40) % [place] % (Auto) 9.4 (2-11) % Eos % (Auto) 0.9 (0-4) % Baso % (Auto) 0.3 (0-2) % Lymph # (Auto) 1.3 (1.2-4.9) X10*3/uL [place] # (Auto) 0.7 (0.1-1.2) X10*3/uL Eos # (Auto) 0.1 (0.0-0.4) X10*3/uL Baso # (Auto) 0.0 (0.0-0.2) X10*3/uL Abs Immat Gran (auto) 0.05 H (0.00-0.03) X10*3/uL Absolute Neuts (auto) 5.0 (2.0-8.3) x10*3/uL Absolute Nucleated RBC 0.000 (0.0-0.012) X10*3/uL Nucleated RBC % (auto) 0.0 (0.0-0.2) /100WBC Sodium 136 (135-145) mmol/L Potassium 3.6 (3.3-5.1) mmol/L Chloride 106 (96-108) mmol/L Carbon Dioxide 24 (22-29) mmol/L Anion Gap 10 L (12-20) BUN 6 L (9-16) mg/dL Creatinine 0.71 (0.5-1.4) mg/dL Estim Creat Clear Calc 105.5 Estimated GFR > 60 Random Glucose 82 (60-115) mg/dL Calcium 9.2 (8.4-10.2) mg/dL Total Bilirubin 0.7 (0.0-1.0) mg/dL AST 197 H (5-31) U/L ALT 223 H (0-31) U/L Alkaline Phosphatase 189 H (39-117) U/L C-Reactive Protein 4.96 H (< or = 0.50) mg/dL Total Protein 6.9 (6.5-8.0) g/dL Albumin 3.4 L (3.5-5.0) g/dL Lipase 32 (8-78) U/L Urine Color Dark Yellow Urine Appearance Clear Urine pH 6.5 (5.0-9.0) Ur Specific [place] 1.010 (1.005-1.025) Urine Protein Negative (Neg-Trace) mg/dL Urine Glucose (UA) Negative (Negative) mg/dL Urine Ketones 15 (Negative) mg/dL Urine Blood Negative (Negative) Urine Nitrite Negative (Negative) Ur Leukocyte Esterase Small (1+) H (Negative) Urine RBC 0-2 (0-2) /HPF Urine WBC 0-5 (0-5) /HPF Ur Squamous Epith Cells 3-5 (0-2) /HPF Urine Bacteria None Seen (None Seen) Hyaline Casts 0-2 (0-2) /LPF Independent Interpretation I performed an independent interpretation of an: Ultrasound Interpretation: My interpretation is in agreement with the radiologist's impression of this imaging study. EXAMINATION: US ABDOMEN GALLBLADDER ONLY CLINICAL INFORMATION: Right upper quadrant pain.. COMPARISON: Ultrasound abdomen July 11, 2019 TECHNIQUE: Real-time imaging of the gallbladder and CBD. FINDINGS: Gallbladder: Numerous small gallstones layering dependently in the gallbladder. There is gallbladder wall thickening measuring 1 cm. Fluid in the gallbladder wall. There is also pericholecystic fluid. These changes are consistent with acute cholecystitis. Common bile duct: No dilatation of the common bile duct. Common bile duct measures 0.3 cm. US/US abdomen limited IMPRESSION: Cholelithiasis. Findings consistent with acute cholecystitis. Dictated By: Tip Taylor MD Signed By: Electronically signed by Tip Taylor MD 07/15/23 3881 Radiology Impression Discussion of test interpretation with radiology: I have reviewed the radiologist's reading. Critical Care Time Critical Care Time Critical Care Time: Yes Total Critical Care Time: 127 Attestation: I spent 127 minutes of Critical Care Time with this patient. This does not include time spent on separately reported billable procedures. Discharge Plan Discharge Clinical Impression: Cholecystitis Patient Disposition: Admitted As Inpatient
[2023-07-15 12:13] LABS: MANUAL DIFF FLAG NO
[2023-07-15 12:15] LABS: Appearance Urine Clear; Color Urine Dark Yellow; Glucose Urine UA Negative (Negative); Leukocyte Esterase Urine Small (1+) (Negative); Nitrite Urine Negative (Negative); PH 6.5 (5.0-9.0); UMIC TRIGGER UACC YES; Urine Blood Negative (Negative); Urine Ketones 15 mg/dL (Negative); Urine Protein Negative (Neg-Trace)
[2023-07-15 12:16] LABS: Basophils Percent Auto 0.3 % (0-2); Eosinophils Absolute Auto 0.1 X10*3/uL (0.0-0.4); Eosinophils Percent Auto 0.9 % (0-4); Hematocrit 35.5 % (37.0-47.0); Imm Gran Abs Auto 0.05 X10*3/uL (0.00-0.03); Imm Gran Pct Auto 0.7 % (0.0-0.4); Lymphocytes Absolute Auto 1.3 X10*3/uL (1.2-4.9); Lymphocytes Percent Auto 17.8 % (20-40); Mean Corpuscular HGB Conc 33.8 g/dl (31.0-35.0); Mean Corpuscular Hemoglobin 28.8 pg (27.0-33.0); Mean Corpuscular Volume 85.3 fL (80.0-98.0); Mean Platelet Volume 10.6 fL (9.4-12.3); Monocytes Absolute Auto 0.7 X10*3/uL (0.1-1.2); Monocytes Percent Auto 9.4 % (2-11); Neutrophils Percent Auto 70.9 % (45-73); Platelet Count 217 X10*3/uL (160-400); Red Blood Count 4.16 X10*6/uL (4.20-5.50); Red Cell Distribution Width 13.5 % (11.0-16.0)
[2023-07-15 12:23] LABS: Bacteria Urine None Seen (None Seen); Hyaline Casts Urine 0-2 /LPF (0-2); RBC Urine 0-2 /HPF (0-2); UACC Culture Trigger YES; WBC Urine 0-5 /HPF (0-5)
[2023-07-15 12:30] LABS: Alanine Aminotransferase 223 U/L (0-31); Albumin Level 3.4 g/dL (3.5-5.0); Alkaline Phosphatase 189 U/L (39-117); Anion Gap 10 (12-20); Aspartate Amino Transferase 197 U/L (5-31); Bilirubin Total 0.7 mg/dL (0.0-1.0); Blood Urea Nitrogen 6 mg/dL (9-16); C Reactive Protein 4.96 mg/dL (< or = 0.50); Calcium 9.2 mg/dL (8.4-10.2); Carbon Dioxide 24 mmol/L (22-29); Chloride 106 mmol/L (96-108); Creatinine Clr Calc Pharmacy 105.5; Estimated Glomerular Filt Rate > 60; Glucose Random 82 mg/dL (60-115); Lipase 32 U/L (8-78); Potassium 3.6 mmol/L (3.3-5.1); Sodium 136 mmol/L (135-145); Total Protein 6.9 g/dL (6.5-8.0)
[2023-07-15 15:02] VITALS: BP 120/51; PULSE 87; RESP 16; O2SAT 99
--- NOTE | 2023-07-15 16:57 | PHA.MEDREC ---
Pharmacy Consult ? Medication Reconciliation Pharmacy has completed the medication reconciliation. Patient reported medications. Patricia Garsia, JoeD
[2023-07-15] MEDS: Piperacillin Sodium/Tazobactam 3.375 GM in 0.9 % Sodium Chloride 50 ML IV ×2 (17:09→22:32)
[2023-07-15 17:27] LABS: Lactic Acid 0.8 mmol/L (0.5-2.0)
--- NOTE | 2023-07-15 17:55 | PC.NURSE ---
patient a&ox3, vss, iv inserted, labs previously drawn, pt iv abx hung per order, us previously obtained, call valle within reach, will continue to monitor
[2023-07-15] MEDS: Dextrose 5 % and 0.9 % NaCl 1,000 ML 100 ML IVCONT (18:31)
--- NOTE | 2023-07-15 18:34 | PC.NURSE ---
ivf started per order, pt denying pain/discomfort
[2023-07-16] VITALS (13 sets, daily range): BP systolic 95–118; BP diastolic 51–67; PULSE 73–101; RESP 16–20; TEMP 36.2–36.9; O2SAT 95–100; BMI 32.2
--- NOTE | 2023-07-16 01:34 | PC.NURSE ---
This Rn introduce herself to pt, pt sleeping at the time, provided pt with warm blanket.
--- NOTE | 2023-07-16 03:40 | PC.NURSE ---
no ivf d5 ns in livestock yard supervisor called and will bring to the ed.
[2023-07-16] MEDS: Dextrose 5 % and 0.9 % NaCl 1,000 ML 100 ML IVCONT ×2 (03:59→17:30)
[2023-07-16] MEDS: Piperacillin Sodium/Tazobactam 3.375 GM in 0.9 % Sodium Chloride 50 ML IV ×2 (05:07→13:35)
--- NOTE | 2023-07-16 05:10 | PC.NURSE ---
pt resting, medicated per mar.
--- NOTE | 2023-07-16 05:41 | PC.NURSE ---
Assumed care of pt. Pt appears in no acute distress at this time. Continuing plan of care.
--- NOTE | 2023-07-16 08:10 | PC.NURSE ---
[facility] CALLED (DYVEN) GIVEN RN TO RN REPORT. PT AWARE OF PLAN OF CARE.
[2023-07-16] MEDS: 0.9 % Sodium Chloride Flush 3 ML SYRINGE IVFLUSH (08:25)
--- NOTE | 2023-07-16 08:29 | PC.NURSE ---
DR. CHEEMA AT BEDSIDE, PT AWARE OF PLAN OF CARE.
--- NOTE | 2023-07-16 08:58 | P.HPGS_ITS ---
History of Present Illness History of Present Illness Date of Service: 07/16/23 <Loli Pardo PA-C - Last Filed: 07/16/23 13:09> 07/16/23 <Danilo Cardoso MD - Last Filed: 07/16/23 10:43> Chief complaint: acute GB <Loli Pardo PA-C - Last Filed: 07/16/23 13:09> Narrative: Cheli Decker is a 32 year old female 19 weeks gestation who presented to the ED with complaints of generalized pruritis. She was seen in the ED on 07/11/23 for complaints of nausea/vomiting and abd pain and was found to have cholelithiasis without signs of cholecystitis. She was therefore discharged to home. She had continued to have abdominal pain with associated nausea and vomiting following discharge however it eventually resolved. She awoke yesterday morning and her entire body was itchy including her palms and soles. Patient endorses associated headaches, nausea, vomiting and abdominal discomfort when she attempted to eat dinner last night. She therefore came back to the ED and was found to have elevated liver enzymes with bilirubin WNL. CBC WNL. ABD US performed which showed gallstones with gallbladder wall thickening and pericholecystic fluid without biliary ductal dilatation. She reports her has been otherwise uncomplicated. Her care is at [facility]. <Loli Pardo PA-C - Last Filed: 07/16/23 13:09> Review of Systems Constitutional: Constitutional: Denies chills and Denies fever(s) <Loli Pardo PA-C - Last Filed: 07/16/23 13:09> ENT: Denies dizziness <Loli Pardo PA-C - Last Filed: 07/16/23 13:09> Cardiovascular: Cardiovascular: Denies chest pain and Denies dyspnea <OLIVIA Bloom Last Filed: 07/16/23 13:09> Respiratory: Respiratory: Denies dyspnea <OLIVIA Bloom Last Filed: 07/16/23 13:09> Gastrointestinal: Gastrointestinal: Reports as per HPI <OLIVIA Bloom Last Filed: 07/16/23 13:09> Genitourinary: Genitourinary: Denies hematuria <Loli Pardo PA-C - Last Filed: 07/16/23 13:09> Integumentary/Breasts: Skin/Breast: Reports pruritus, Denies rash and Denies jaundice <Loli Pardo PA-C - Last Filed: 07/16/23 13:09> Neurologic: Denies dizziness <Loli Pardo PA-C - Last Filed: 07/16/23 13:09> [facility] Past Medical History Medical History: Medical History (Updated 07/15/23 @ 17:12 by Lexie Kaufman RN) Seasonal allergies <Loli Pardo PA-C - Last Filed: 07/16/23 13:09> Social History Social History: Social History Alcohol intake: never Patient Tobacco Use Status: Never used Tobacco Smoked in Last 30 Days: No Second Hand Smoke Exposure: No Use of substances other than those prescribed or required for medical reasons: No Are you DNR?: No Advance Directives: No Advance Directives Information Provided: No Advance Directives on File: No Patient : Yes <Loli Pardo PA-C - Last Filed: 07/16/23 13:09> Meds Allergies/Adverse reactions: Allergies Allergy/AdvReac Type Severity Reaction Status Date / Time No Known Allergies Allergy Verified 07/15/23 11:55 <Loli Pardo PA-C - Last Filed: 07/16/23 13:09> Active Medications: Current Medications Acetaminophen (Acetaminophen 325 Mg Tablet) 650 mg PO Q6H PRN PRN Reason: Pain, Mild (Pain Scale 1-3) Al Hydroxide/Mg Hydroxide (Magnesium Hydrox/Alum Hydrox 30 Ml Oral.Susp) 30 ml PO Q4H PRN PRN Reason: Heartburn/Nausea Hydromorphone HCl (Hydromorphone Hcl 1 Mg/Ml Syringe) 0.5 mg IVPUSH Q4H PRN; Protocol PRN Reason: Pain, Severe (Pain Scale 7-10) Dextrose/Sodium Chloride (D5ns) 1,000 mls @ 100 mls/hr IVCONT .Q10H [facility] Last Admin: 07/16/23 03:59 Dose: 100 mls/hr Piperacillin Sod/Tazobactam (Sod 3.375 gm/ Sodium Chloride) 50 mls @ 100 mls/hr IV Q6H [facility] Last Infusion: 07/16/23 05:51 Dose: Infused Magnesium Hydroxide (Milk Of Magnesia 30 Ml Oral.Susp) 30 ml PO DAILY PRN PRN Reason: Constipation Melatonin (Melatonin 3 Mg Tablet) 3 mg PO BEDTIME PRN PRN Reason: Insomnia Ondansetron HCl (Ondansetron Hcl 4 Mg/2 Ml Vial) 4 mg IVPUSH Q8H PRN PRN Reason: Nausea and Vomiting Sodium Chloride (0.9 % Sodium Chloride Flush 3 Ml Syringe) 3 ml IVFLUSH QSHIFT [facility] Last Admin: 07/16/23 08:25 Dose: 3 ml <Loli Pardo PA-C - Last Filed: 07/16/23 13:09> Home medications: Home Medications Medication Instructions Recorded Confirmed Last Taken Type aspirin 81 mg chewable tablet 162 mg PO BEDTIME 07/15/23 07/15/23 07/14/23 History famotidine 40 mg tablet 40 mg PO BEDTIME 07/15/23 07/15/23 07/14/23 History loratadine 10 mg tablet (Claritin) 10 mg PO DAILY 07/15/23 07/15/23 07/15/23 History montelukast 10 mg tablet 10 mg PO BEDTIME 07/15/23 07/15/23 07/14/23 History pyridoxine (vitamin B6) 50 mg 50 mg PO BEDTIME 07/15/23 07/15/23 07/14/23 History tablet <OLIVIA Bloom Last Filed: 07/16/23 13:09> Physical Exam Vital Signs: Vital Signs: Last Vital Signs Temp 97.4 F 07/16/23 08:24 Pulse 96 07/16/23 08:24 Resp 17 07/16/23 08:24 BP 95/54 L 07/16/23 08:24 Pulse Ox 98 07/16/23 08:24 O2 Del Method Room Air 07/16/23 08:24 BMI result Body Mass Index 23.4 <OLIVIA Bloom Last Filed: 07/16/23 13:09> Const: General: comfortable, no acute distress and alert <OLIVIA Bloom Last Filed: 07/16/23 13:09> Orientation/consciousness: patient oriented x3 <OLIVIA Bloom Last Filed: 07/16/23 13:09> Resp: Effort & Inspection: normal respiratory effort <OLIVIA Bloom Last Filed: 07/16/23 13:09> GI: Other: abdomen <OLIVIA Bloom Last Filed: 07/16/23 13:09> Inspection: No distended <OLIVIA Bloom Last Filed: 07/16/23 13:09> Palpation (GI): Soft to palpation, Tenderness to palpation present (GI) (mild RUQ tenderness) Brunner's sign negative, no guarding and not rigid <OLIVIA Bloom Last Filed: 07/16/23 13:09> Skin: General skin exam: no rashes or lesions noted and no jaundice <OLIVIA Bloom Last Filed: 07/16/23 13:09> Neuro: General: patient oriented x3 and moves all extremities <OLIVIA Bloom Last Filed: 07/16/23 13:09> Results Results Labs: Short CBC 07/15/23 Range/Units 12:07 WBC 7.0 (4.8-10.8) X10*3/uL Hgb 12.0 (12.0-16.0) g/dl Hct 35.5 L (37.0-47.0) % Plt Count 217 (160-400) X10*3/uL BMP 07/15/23 12:07 Sodium 136 Potassium 3.6 Chloride 106 Carbon Dioxide 24 BUN 6 L Creatinine 0.71 Calcium 9.2 Liver Function 07/15/23 Range/Units 12:07 Total Bilirubin 0.7 (0.0-1.0) mg/dL AST 197 H (5-31) U/L ALT 223 H (0-31) U/L Alkaline Phosphatase 189 H (39-117) U/L Albumin 3.4 L (3.5-5.0) g/dL Urine 07/15/23 Range/Units 12:07 Urine Color Dark Yellow Urine Appearance Clear Urine pH 6.5 (5.0-9.0) Ur Specific Mallie 1.010 (1.005-1.025) Urine Protein Negative (Neg-Trace) mg/dL Urine Glucose (UA) Negative (Negative) mg/dL <Loli Gauthierbodebridgette JUANJOSEEmelina - Last Filed: 07/16/23 13:09> Abdominal ultrasound report/results: report reviewed and image reviewed <Loli Gauthierbodeau ASAELNuris Last Filed: 07/16/23 13:09> Assessment and Plan (1) Cholelithiasis: Status: Acute <Loli Gauthierbodebridgette ASAELCandyEmelina Last Filed: 07/16/23 13:09> 32 year old female 19 weeks gestation who presents with generalized pruritis with recent hx of episode of biliary colic found to have gallbladder wall thickening and pericholecystic fluid consistent with acute cholecystitis. Lengthy discussion about treatment options including continuing with conservative measures and antibiotics, low fat diet versus proceeding with laparoscopic cholecystectomy possible open. Risks, benefits, alternatives of laparoscopic possible open cholecystectomy were reviewed with the patient including but not limited to bleeding, infection, numbness, pain, poor healing, injury to the liver, bowel or bile ducts, leak, retained stones and risks to fetus were discussed.?All questions were answered. The patient would like to proceed with surgery to prevent recurrence and severe acute illness further in her . Quality Assurance Technician was consulted who recommended obtaining heart rate prior and following surgery and this will be arranged. She will be added onto the OR schedule for today. Discussed extensively with anesthesia. Will give SQ heparin preop for VTE prophylaxis. An extensive discussion was had with the patient and her mother regarding the risks, benefits, alternatives laparoscopic possible open cholecystectomy as noted above. <Loli GauthierASAEL ibarraNuris - Last Filed: 07/16/23 13:09> 32 year old female 19 weeks gestation who presents with generalized pruritis with recent hx of episode of biliary colic found to have gallbladder wall thickening and pericholecystic fluid consistent with acute cholecystitis. Lengthy discussion about treatment options including continuing with conservative measures and antibiotics, low fat diet versus proceeding with laparoscopic cholecystectomy possible open. Risks, benefits, alternatives of laparoscopic possible open cholecystectomy were reviewed with the patient including but not limited to bleeding, infection, numbness, pain, poor healing, injury to the liver, bowel or bile ducts, leak, retained stones and risks to fetus were discussed.?All questions were answered. The patient would like to proceed with surgery to prevent recurrence and severe acute illness further in her . Quality Assurance Technician was consulted who recommended obtaining heart rate prior and following surgery. She will be added onto the OR schedule for today. An extensive discussion was had with the patient and her mother regarding the risks, benefits, alternatives laparoscopic possible open cholecystectomy as noted above. <Danilo Cardoso MD - Last Filed: 07/16/23 10:43> Quality Stroke Does the patient have a stroke diagnosis?: No <Danilo Cardoso MD - Last Filed: 07/16/23 10:43> VTE Prior VTE?: No <Danilo Cardoso MD - Last Filed: 07/16/23 10:43> VTE Risk Level:: Surgical - low <Loli Pardo PA-C - Last Filed: 07/16/23 13:09> VTE Device Contraindication: N/A - Device Ordered <Loli Pardo PA-C - Last Filed: 07/16/23 13:09> VTE Drug Contraindication: Treatment Not Indicated <Loli Pardo PA-C - Last Filed: 07/16/23 13:09> Procedures Date of Service Date of Service: 07/16/23 <Loli Pardo PA-C - Last Filed: 07/16/23 13:09> 07/16/23 <Danilo Cardoso MD - Last Filed: 07/16/23 10:43>
--- NOTE | 2023-07-16 10:37 | MHC.CM.PN ---
CM ATTEMPTED TO MEET W/PT, PT HAS ALREADY LEFT ED TO [facility], CM WILL REVISIT.
--- NOTE | 2023-07-16 12:20 | HO.ANESPROP2 ---
[facility] Active Problems Active Problems: All Active Problems (Updated 07/15/23 @ 17:12 by Lexie Kaufman RN) Cholecystitis (Acute) Cholelithiasis (Acute) Past Medical History Medical History (Updated 07/15/23 @ 17:12 by Lexie Kaufman RN) Seasonal allergies Family History Family history of problems with anesthesia: No Surgical History History of Problems with Anesthesia: No Social History Social History Alcohol intake: never Patient Tobacco Use Status: Never used Tobacco Smoked in Last 30 Days: No Second Hand Smoke Exposure: No Use of substances other than those prescribed or required for medical reasons: No Are you DNR?: No Advance Directives: No Advance Directives Information Provided: No Advance Directives on File: No Patient : Yes Meds Allergies Allergy/AdvReac Type Severity Reaction Status Date / Time No Known Allergies Allergy Verified 07/15/23 11:55 Active Medications: Current Medications Acetaminophen (Acetaminophen 325 Mg Tablet) 650 mg PO Q6H PRN PRN Reason: Pain, Mild (Pain Scale 1-3) Al Hydroxide/Mg Hydroxide (Magnesium Hydrox/Alum Hydrox 30 Ml Oral.Susp) 30 ml PO Q4H PRN PRN Reason: Heartburn/Nausea Fentanyl (Fentanyl Citrate/Pf 100 Mcg/2 Ml Vial) 25 mcg IVPUSH Q5M PRN; Protocol PRN Reason: Pain, Moderate(Pain Scale 4-6) Stop: 07/16/23 18:10 Hydromorphone HCl (Hydromorphone Hcl 1 Mg/Ml Syringe) 0.5 mg IVPUSH Q4H PRN; Protocol PRN Reason: Pain, Severe (Pain Scale 7-10) Hydromorphone HCl (Hydromorphone Hcl 0.5 Mg/0.5 Ml Syringe) 0.25 mg IVPUSH Q5M PRN; Protocol PRN Reason: Pain, Severe (Pain Scale 7-10) Stop: 07/16/23 18:10 Dextrose/Sodium Chloride (D5ns) 1,000 mls @ 100 mls/hr IVCONT .Q10H [facility] Last Admin: 07/16/23 03:59 Dose: 100 mls/hr Piperacillin Sod/Tazobactam (Sod 3.375 gm/ Sodium Chloride) 50 mls @ 100 mls/hr IV Q6H [facility] Last Infusion: 07/16/23 05:51 Dose: Infused Magnesium Hydroxide (Milk Of Magnesia 30 Ml Oral.Susp) 30 ml PO DAILY PRN PRN Reason: Constipation Melatonin (Melatonin 3 Mg Tablet) 3 mg PO BEDTIME PRN PRN Reason: Insomnia Ondansetron HCl (Ondansetron Hcl 4 Mg/2 Ml Vial) 4 mg IVPUSH Q8H PRN PRN Reason: Nausea and Vomiting Sodium Chloride (0.9 % Sodium Chloride Flush 3 Ml Syringe) 3 ml IVFLUSH QSHIFT [facility] Last Admin: 07/16/23 08:25 Dose: 3 ml Home Medications Medication Instructions Recorded Confirmed Last Taken Type aspirin 81 mg chewable tablet 162 mg PO BEDTIME 07/15/23 07/15/23 07/14/23 History famotidine 40 mg tablet 40 mg PO BEDTIME 07/15/23 07/15/23 07/14/23 History loratadine 10 mg tablet (Claritin) 10 mg PO DAILY 07/15/23 07/15/23 07/15/23 History montelukast 10 mg tablet 10 mg PO BEDTIME 07/15/23 07/15/23 07/14/23 History pyridoxine (vitamin B6) 50 mg 50 mg PO BEDTIME 07/15/23 07/15/23 07/14/23 History tablet Exam Height,Weight and Vital Signs: Height 5 ft 6 in Weight 65.771 kg Last Vital Signs Temp 98.4 F 07/16/23 09:21 Pulse 98 07/16/23 09:21 Resp 16 07/16/23 09:21 BP 111/67 07/16/23 09:21 Pulse Ox 97 07/16/23 09:21 O2 Del Method Room Air 07/16/23 09:21 Pertinent Lab Results Pertinent Lab Results: Laboratory Tests 07/15/23 07/15/23 12:07 17:05 WBC 7.0 RBC 4.16 L Hgb 12.0 Hct 35.5 L MCV 85.3 MCH 28.8 MCHC 33.8 RDW 13.5 Plt Count 217 MPV 10.6 Immature Gran % (Auto) 0.7 H Neut % (Auto) 70.9 Lymph % (Auto) 17.8 L [place]oshone % (Auto) 9.4 Eos % (Auto) 0.9 Baso % (Auto) 0.3 Lymph # (Auto) 1.3 [place]one # (Auto) 0.7 Eos # (Auto) 0.1 Baso # (Auto) 0.0 Abs Immat Gran (auto) 0.05 H Absolute Neuts (auto) 5.0 Absolute Nucleated RBC 0.000 Nucleated RBC % (auto) 0.0 Sodium 136 Potassium 3.6 Chloride 106 Carbon Dioxide 24 Anion Gap 10 L BUN 6 L Creatinine 0.71 Estim Creat Clear Calc 105.5 Estimated GFR > 60 Random Glucose 82 Lactic Acid 0.8 Calcium 9.2 Total Bilirubin 0.7 AST 197 H ALT 223 H Alkaline Phosphatase 189 H C-Reactive Protein 4.96 H Total Protein 6.9 Albumin 3.4 L Lipase 32 Urine Color Dark Yellow Urine Appearance Clear Urine pH 6.5 Ur Specific [place] 1.010 Urine Protein Negative Urine Glucose (UA) Negative Urine Ketones 15 Urine Blood Negative Urine Nitrite Negative Ur Leukocyte Esterase Small (1+) H Urine RBC 0-2 Urine WBC 0-5 Ur Squamous Epith Cells 3-5 Urine Bacteria None Seen Hyaline Casts 0-2 Airway Mallampati Class: II TM Dist: >3cm Neck ROM: Full Loose/Missing/Broken Teeth: No Heart: rrr Lungs: cta b/l Assessment and Plan Assessment Anesthesia Assessment: Anesthesia Plan Discussed and Chart Reviewed Final Anesthetic Review Family History of Problems with Anesthesia: No History of Problems with Anesthesia: No NPO: Yes ASA Class: II Final Preanesthetic Review: No Changes in Pt Med Stat, Meds/Allgs Chart Reviewed, Consent Obtained/Reviewed and Anes Risks/Benef Reviewed Patient Risk: Intermediate Procedure Risk: Intermediate Anesthetic Plan Anesthetic Plan: GA Disposition: Standard PACU
--- NOTE | 2023-07-16 12:36 | PM.ANESPN ---
Subjective Subjective Date of Service: 07/16/23 Patient reports: other Physical Exam Vital Signs: Vital Signs: Last Vital Signs Temp 98.4 F 07/16/23 09:21 Pulse 98 07/16/23 09:21 Resp 16 07/16/23 09:21 BP 111/67 07/16/23 09:21 Pulse Ox 97 07/16/23 09:21 O2 Del Method Room Air 07/16/23 09:21 BMI result Body Mass Index 23.4 Progress Note: A&P Assessment and plan (1) Cholecystitis: Status: Acute Plan pt presents for lap scott at 19 weeks attempted to speak with pt ob at [facility] for consultation as it relates to care and [facility] op care Called on 07/16/2023 at 11am and was eventually told after one hour of Ttempting to speak to an ob that an available ob was in meeting case is urgent and needs to proceed quickly but a dr atiya Castaneda was to be given the urgent message pt is on aspirin for whT she states i prophylaxis for anti thrombosis but she does also have an elevated c reactive protein but she states the aspirin administration is not related to that a consultation was made to dr keen a frog shaker on staff at [facility] and his opinion was to do a pre and post fhr for viability spoke to patients in detail about general anesthetic risks as well as risks with and she understood and willing to proceed will continue to try to get more info from her ob prior to surgery but due to urgent nature will not delay procedure for a response Time Spent With Patient Time: Total time managing care of this patient today ____ minutes. No Severe Sepsis: No Severe Sepsis Progress Note: Quality Stroke Does the patient have a stroke diagnosis?: No Procedures Date of Service Date of Service: 07/16/23 Abscess I/D Consent for Procedure: Elective - informed consent obtained
[2023-07-16] MEDS: Heparin Sodium,Porcine 5,000 UNIT/ML VIAL 5000 UNIT SUBCUT (13:26)
--- NOTE | 2023-07-16 14:46 | W.PM.OPN ---
Operative Note Operative Note Date of Service: 07/16/23 Narrative: Preop diagnosis; acute cholecystitis Postop diagnosis: [] Acute phlegmonous pre gangrenous cholecystitis Procedure [] laparoscopic cholecystectomy Surgeon: [] Walker [employer] F[employer] Trainer: [] Char Type of Anesthesia: [] General Indication for surgery: [] Turgid phlegmonous gallbladder with gangrenous changes to the wall. Omental adhesions to the gallbladder. Markedly intrahepatic gallbladder. uterus observed. Findings: [] Patient brought to the operating room, placed on operative table in supine position, and after an adequate level of general anesthesia was induced, a booster was placed under the right hip area and the patient's abdomen was prepped and draped in usual sterile fashion. A supraumbilical curvilinear incision was made and Riggins technique was used to insufflate the abdominal cavity to 12 mm of CO2. Upper midline and right subcostal ports were placed under direct laparoscopic view, and the patient placed in reverse Trendelenburg position, and tilted to the left. Findings were as noted above. Because of the marked rigidity, the gallbladder was initially decompressed with an aspirating device and then was grasped using laparoscopic graspers, and retracted superiorly and laterally. Omental adhesions were swept off the gallbladder was hilum was approached. Cystic artery and cystic duct were each identified circumferentially skeletonized, traced directly into the gallbladder, and critical view obtained. Each was clipped proximally x2, distally x1, and transected. Gallbladder which was moderately intrahepatic was then cauterized from the gallbladder fossa using Bovie. Specimen was placed in an Endo-Catch bag, a retrieved through the umbilical port. Abdominal cavity was copiously irrigated, and secured hemostasis. All ports were removed under direct laparoscopic view. Wounds were closed in the following manner; umbilical wound has fascia reapproximated using interrupted 0 Vicryl sutures. Skin wounds were closed using subcuticular 4-0 Vicryl sutures followed by Steri-Strips and sterile dressings. Sponge, needle, and instrument counts reported correct. Patient tolerated the procedure well and emerged from anesthesia stable condition. EBL minimal
[2023-07-16] MEDS: ondansetron HCL 4 MG/2 ML VIAL IVPUSH (17:04)
[2023-07-16] MEDS: Loratadine 10 MG TABLET PO (20:24)
[2023-07-16] MEDS: Montelukast Sodium 10 MG TABLET PO (20:24)
[2023-07-16] MEDS: Pyridoxine HCl (Vitamin B6) 50 MG TABLET PO (20:24)
[2023-07-16] MEDS: Aspirin 81 MG TAB.CHEW 162 MG PO (20:24)
[2023-07-17 00:19] VITALS: BP 104/55; PULSE 82; RESP 16; TEMP 36.3; O2SAT 95
[2023-07-17 03:12] VITALS: BP 112/59; PULSE 97; RESP 16; TEMP 36.2; O2SAT 95
[2023-07-17] MEDS: Dextrose 5 % and 0.9 % NaCl 1,000 ML 100 ML IVCONT (03:26)
[2023-07-17] MEDS: Acetaminophen 325 MG TABLET 650 MG PO (07:45)
--- NOTE | 2023-07-17 07:45 | PM.PNGS ---
Subjective Subjective Date of Service: 07/17/23 Interval history: Only had broth yesterday due to nausea. Improved this morning. Reports pain at the incision sites. Physical Exam Vital Signs: Vital Signs: Last Vital Signs Temp 97.1 F 07/17/23 03:12 Pulse 97 07/17/23 03:12 Resp 16 07/17/23 03:12 BP 112/59 L 07/17/23 03:12 Pulse Ox 95 07/17/23 03:12 O2 Del Method Room Air 07/17/23 03:12 O2 Flow Rate 5 07/16/23 14:53 BMI result Body Mass Index 32.2 Const: General: comfortable, no acute distress and alert Orientation/consciousness: patient oriented x3 Resp: Effort & Inspection: normal respiratory effort GI: Other: palpable fundus just below umbilicus Inspection: No distended and Yes incision (dressings c/d/i) Palpation (GI): Soft to palpation, Tenderness to palpation present (GI) (mild incisional), no guarding and not rigid Skin: General skin exam: no rashes or lesions noted and no jaundice Neuro: General: patient oriented x3 and moves all extremities Objective Data Active Medications Acetaminophen (Acetaminophen 325 Mg Tablet) 650 mg PO Q6H PRN PRN Reason: Pain, Mild (Pain Scale 1-3) Al Hydroxide/Mg Hydroxide (Magnesium Hydrox/Alum Hydrox 30 Ml Oral.Susp) 30 ml PO Q4H PRN PRN Reason: Heartburn/Nausea Aspirin (Aspirin 81 Mg Tab.Chew) 162 mg PO BEDTIME [facility] Last Admin: 07/16/23 20:24 Dose: 162 mg Documented By: FRANCOISE Famotidine (Famotidine 20 Mg Tablet) 40 mg PO BEDTIME [facility] Hydromorphone HCl (Hydromorphone Hcl 1 Mg/Ml Syringe) 0.5 mg IVPUSH Q4H PRN; Protocol PRN Reason: Pain, Severe (Pain Scale 7-10) Dextrose/Sodium Chloride (D5ns) 1,000 mls @ 100 mls/hr IVCONT .Q10H [facility] Last Admin: 07/17/23 03:26 Dose: 100 mls/hr Documented By: SAMIA Loratadine (Loratadine 10 Mg Tablet) 10 mg PO DAILY [facility] Stop: 07/23/23 20:59 Last Admin: 03/21/24 20:24 Dose: 10 mg Documented By: FRANCOISE Magnesium Hydroxide (Milk Of Magnesia 30 Ml Oral.Susp) 30 ml PO DAILY PRN PRN Reason: Constipation Montelukast Sodium (Montelukast Sodium 10 Mg Tablet) 10 mg PO BEDTIME [facility] Last Admin: 07/16/23 20:24 Dose: 10 mg Documented By: FRANCOISE Ondansetron HCl (Ondansetron Hcl 4 Mg/2 Ml Vial) 4 mg IVPUSH Q8H PRN PRN Reason: Nausea and Vomiting Last Admin: 07/16/23 17:04 Dose: 4 mg Documented By: PAMELA Oxycodone HCl (Oxycodone Hcl Immed Release 5 Mg Tablet) 5 mg PO Q4H PRN PRN Reason: Pain, Moderate(Pain Scale 4-6) Pyridoxine HCl (Pyridoxine Hcl (Vitamin B6) 50 Mg Tablet) 50 mg PO BEDTIME [facility] Last Admin: 07/16/23 20:24 Dose: 50 mg Documented By: FRANCOISE Sodium Chloride (0.9 % Sodium Chloride Flush 3 Ml Syringe) 3 ml IVFLUSH QSHIFT [facility] Last Admin: 07/17/23 00:28 Dose: Not Given Documented By: SAMIA Non-Admin Reason: IV Running Labs 07/15/23 12:07 07/15/23 12:07 Microbiology Microbiology Results: Microbiology 07/15/23 17:05 Blood Culture - Preliminary Blood - Venous No growth after 24 hours. 07/15/23 17:05 Blood Culture - Preliminary Blood - Venous No growth after 24 hours. 07/15/23 Unknown Urine Culture - Final Urine clean catch - Urine black top Procedures Date of Service Date of Service: 07/17/23 Progress Note: A&P Assessment and plan (1) Cholecystitis: Status: Acute Plan POD #1 s/p lap scott. Found to have turgid phlegmonous gallbladder with gangrenous changes to the wall. Post op ob US showed viable intrauterine . DOing well post op, appropriate post op tenderness. If tolerating solid diet and LFTs improved this am, stable for dc to home. F/u with ob upon discharge. F/u with Dr. Cardoso in 1 week. Time Spent With Patient Time: Total time managing care of this patient today ____ minutes. Quality Stroke Does the patient have a stroke diagnosis?: No VTE Prior VTE?: No VTE Risk Level:: Surgical - low VTE Device Contraindication: N/A - Device Ordered VTE Drug Contraindication: Treatment Not Indicated
--- NOTE | 2023-07-17 07:50 | HO.POSTANES ---
Post Anesthesia Evaluation Post Anesthesia Evaluation Date of Service: 07/17/23 Vital Signs: Vital Signs Temp Pulse Resp BP Pulse Ox O2 Del Method 07/17/23 03:12 97.1 F 97 16 112/59 L 95 Room Air 07/17/23 00:19 97.4 F 82 16 104/55 L 95 Room Air Anesthesia: General Endotracheal-GETA Mental Status: Awake Pain Control: Satisfactory Nausea/Vomiting: None Hydration: Adequate Anesthesia-Related Issues: No Anes. Related Issues
[2023-07-17 07:56] VITALS: BP 114/53; PULSE 83; RESP 18; TEMP 36.2; O2SAT 95
[2023-07-17 08:24] LABS: Alanine Aminotransferase 167 U/L (0-31); Albumin Level 3.1 g/dL (3.5-5.0); Alkaline Phosphatase 144 U/L (39-117); Aspartate Amino Transferase 95 U/L (5-31); Bilirubin Direct 0.2 mg/dL (0.0-0.5); Bilirubin Total 0.4 mg/dL (0.0-1.0); Total Protein 6.2 g/dL (6.5-8.0)
--- NOTE | 2023-07-17 09:02 | MHC.CM.PN ---
Addendum entered by Celena Pedro RN 07/17/23 10:59: PATIENT MEDICALLY CLEARED FOR DC HOME SELF CARE. TO TRANSPORT. Original Note: PATIENT FROM HOME W/ . INDEPENDENT. DENIES USE OF SERVICES OR DME. PCP DEVON TERRELL MD NO HCP, CM PROVIDED EDUCATION AND OFFERED ASSISTANCE. PATIENT DECLINED. DP: GOAL IS HOME SELF CARE. TO TRANSPORT. CM WILL CONTINUE TO FOLLOW FOR DC NEEDS.
--- NOTE | 2023-07-17 10:47 | MHC.CLN ---
NUTRITION S/P CHOLECYSTECTOMY. ADDED LOW FAT TO DIET ORDER. PATIENT IS 19 WEEKS . MONITOR PO INTAKE AND DIET TOLERANCE.
--- NOTE | 2023-07-17 14:31 | P.DS_ITS ---
DS: Providers Provider Date of Service: 07/17/23 Date of admission: 07/15/23 17:31 Date of discharge: 07/17/23 Primary care physician: Feroz Olivera MD Attending physician on admission: Danilo Cardoso Attending physician on discharge: Danilo Cardoso DS: Diagnosis Discharge Diagnosis (1) Cholecystitis: Status: Acute DS: Summary Hospital Course Hospital Course: HPI AT ADMISSION: Cheli Decker is a 32 year old female 19 weeks gestation who presented to the ED with complaints of generalized pruritis. She was seen in the ED on 07/11/23 for complaints of nausea/vomiting and abd pain and was found to have cholelithiasis without signs of cholecystitis. She was therefore discharged to home. She had continued to have abdominal pain with associated nausea and vomiting following discharge however it eventually resolved. She awoke yesterday morning and her entire body was itchy including her palms and soles. Patient endorses associated headaches, nausea, vomiting and abdominal discomfort when she attempted to eat dinner last night. She therefore came back to the ED and was found to have elevated liver enzymes with bilirubin WNL. CBC WNL. ABD US performed which showed gallstones with gallbladder wall thickening and pericholecystic fluid without biliary ductal dilatation. She reports her has been otherwise uncomplicated. Her care is at [facility]. HOSPITAL COURSE: The patient was admitted to the surgical service for further treatment. A lengthy discussion about treatment options including continuing with conservative measures and antibiotics, low fat diet versus proceeding with laparoscopic cholecystectomy possible open. She elected to proceed with surgery. Network Designer was consulted who recommended obtaining heart rate prior and following surgery and this was arranged. She was added onto the OR schedule for that day. On 07/16/23, a laparoscopic cholecystectomy was performed by Dr. Cardoso without complication. She was found to have a phlegmonous gallbladder with gangrenous changes to the wall. The patient tolerated the procedure well. Post operative OB US showed viable intrauterine gestation present. She had an uncomplicated recovery course. She was doing well on POD #1 and was tolerating a solid diet with good pain control. She was OOB and ambulating. Her abdomen was benign with appropriate post op tenderness and dressings c/d/i. FHR remained stable. Her LFTs downtrended. She felt ready for discharge and was discharged to home on 07/17/23 in stable condition. She is to follow up in the office in [address] Cardoso. She is to follow up with her obgyn upon discharge. Status at Discharge Functional status at discharge: independent ambulation Overall status at discharge: patient is progressing back to baseline Time Attestation Discharge Coordination Time (in mins): 35 Quality: Safe Use of Opioids Does Pt have an Active Cancer Diagnosis on the Problem List?: No Quality: Stroke Does the patient have a stroke diagnosis?: No Physical Exam Vital Signs: Vital Signs: Last Vital Signs Temp 97.2 F 07/17/23 07:56 Pulse 83 07/17/23 07:56 Resp 18 07/17/23 07:56 BP 114/53 L 07/17/23 07:56 Pulse Ox 95 07/17/23 07:56 O2 Del Method Room Air 07/17/23 07:56 O2 Flow Rate 5 07/16/23 14:53 BMI result Body Mass Index 32.2 Const: Orientation/consciousness: patient oriented x3 Resp: Effort & Inspection: normal respiratory effort GI: Other: fundus palpable just inferior to umbilicus Inspection: No distended and Yes incision (dressings c/d/i) Palpation (GI): Soft to palpation and Tenderness to palpation present (GI) Skin: General skin exam: no rashes or lesions noted and no jaundice Neuro: General: patient oriented x3 and moves all extremities DS: Data Data Completed and Pending Pending studies at discharge: Pending at discharge 07/16/23 14:27 Surgical [PTH] Routine Labs on day of discharge: Laboratory Results - last 24 hr 07/17/23 07:47 Total Bilirubin 0.4 Direct Bilirubin 0.2 AST 95 H ALT 167 H Alkaline Phosphatase 144 H Total Protein 6.2 L Albumin 3.1 L Preliminary micro results at discharge 07/15/23 17:05 Blood Culture - Preliminary Blood - Venous No growth after 24 hours. 07/15/23 17:05 Blood Culture - Preliminary Blood - Venous No growth after 24 hours. Discharge Plan Discharge Anticipated Discharge Date/Time: 07/17/23 09:51 Patient Disposition: Home, Self-Care Discharge Diagnosis: laparoscopic cholecystectomy Referrals: Feroz Spivey MD [Primary Care Provider] - 1 Week Daniol Cardoso MD [Physician] - 1 Week Discharge Medications: New oxycodone 5 mg tablet 5 mg PO Q4H PRN (Reason: pain (scale score 7-10)) Qty: 14 0RF Rx Instructions: Partial Fill upon patient request. polyethylene glycol 3350 [Miralax] 17 gram/dose powder 17 g PO DAILY Qty: 119 0RF Continued ondansetron 4 mg tablet,disintegrating 4 mg PO Q6H PRN (Reason: nausea and vomiting) Qty: 15 0RF famotidine 40 mg Tablet 40 mg PO BEDTIME pyridoxine (vitamin B6) 50 mg Tablet 50 mg PO BEDTIME aspirin 81 mg Tablet,Chewable 162 mg PO BEDTIME montelukast 10 mg Tablet 10 mg PO BEDTIME loratadine [Claritin] 10 mg Tablet 10 mg PO DAILY Discharge Orders: Discharge Order (Routine); Ordered 07/17/23 Ordered By: Loli Pardo Diet: Advance to usual diet Activity on Discharge: No heavy lifting Stand Alone Forms: Patient Portal Discharge page Activity Restrictions/Additional Instructions: Apply an ice pack for short intervals (20 minutes on, followed by at least 20 minutes off) for the first 2 days. Do not apply heat. Do not use creams, lotions, or topical antibiotics. These can cause infection or allergic reaction. Ok to shower 48 hours after your surgery. Remove dressings in 2 days and replace as needed. You have steri strips (small white cloth strips) covering your incision- these will fall off ~1 week. Ok to take miralax daily for constipation. Follow up in office with Dr. Cardoso in 1 week. ([phone]) Repeat liver enzymes in 1 week. No heavy lifting (>10lbs) or strenuous activity! Call Your Doctor If: -Your temperature exceeds 101.5? F -You experience excessive pain or swelling -You have an unexpected reaction to medication -You have excessive bleeding -You experience continued vomiting/nausea -Your incision begins to separate -Your incision shows signs of infection such as increased redness, swelling, excessive pain, drainage (light blood or clear fluid is normal) or hea t Care Plan Goals: Return to baseline health and resume normal activities following recovery period. Health Concerns: 19 weeks gestation acute gangrenous cholecystitis elevated LFTs Plan of Treatment: s/p laparoscopic cholecystectomy f/u in office in 1 week f/u with Obgyn Repeat LFTs in 1 week Assessment: Doing well post op. Discharge Date/Time: 07/17/23 13:42
== END 2023-07-17 13:42 | disposition home or self-care (01) | DRG 547 ==
LOC: HO.ED 16:50 → HO.EDOVER 17:38 → HO.S3 07-16 16:45
PROVIDERS: Physician Assistant Medical; Physician Assistant Surgical; Admitting Provider Surgery; Emergency Provider Emergency Medicine; PCP Internal Medicine; Visit Provider Surgery
PROC: 0FT44ZZ Resection of Gallbladder, Percutaneous Endoscopic Approach (ICD-10-PCS; CPT 47562; principal; 2023-07-16 12:10)
DX: O99.612 Diseases of the digestive system complicating pregnancy, second trimester (principal); K81.0 Acute cholecystitis; K82.A1 Gangrene of gallbladder in cholecystitis; Z3A.19 19 weeks gestation of pregnancy; Z79.82 Long term (current) use of aspirin; Z79.899 Other long term (current) drug therapy
CPT/HCPCS: 47562; 36415; 76705; 76815; 80053; 80076; 81001; 83605; 83690; 85025; 86140; 87040; 87086; 88304; 99221; 99285; J0131; J1644; J2371; J2405; J2543; J2704; J2795; J3010

== ENCOUNTER → 2023-07-15 17:31 | Outpatient (BNV) | payer OTHER, SELFPAY | PROVIDERS: Admitting Provider Surgery; Emergency Provider Emergency Medicine; PCP Internal Medicine; Visit Provider Physician Assistant Surgical | DX: K81.9 Cholecystitis, unspecified (principal) | CPT/HCPCS: 47562; 99024; 99223 ==

== ENCOUNTER 2023-07-28 10:24 | Outpatient (AMB) | payer OTHER, SELFPAY ==
[2023-07-28 10:32] VITALS: BP 119/57; PULSE 124
--- NOTE | 2023-07-28 10:32 | A.OFFVIS_ITS ---
Intake Vital Signs 07/28/23 10:32 Weight 184 lb BP 119/57 L Blood Pressure Location Rt brachial Position Sitting Pulse 124 H Intake Visit Reasons: s/p lap scott Intake Note: Patient here s/p lap scott. Reports incisions healing well. Patient c/o: nausea. 21 wks . SX: 07-16-23. Mailing Machine Helper Required: No Accompanied by: Self / Same As Patient Allergies No Known Allergies Allergy (Verified 07/28/23 10:33) HPI HPI Comments History of Present Illness Details Patient presents for follow-up status post laparoscopic cholecystectomy. She is 19 weeks . She has been seen by her chiller operator doctor for follow-up as well. She has tolerating a diet. He is having regular bowel habits. She has incisional discomfort which is improving. PFSH Medical History Seasonal allergies Surgical History Hx laparoscopic cholecystectomy (07/16/23) Social History Household Members: Spouse Housing: House Alcohol intake: never Comment: COUNTS CORRECT Patient Tobacco Use Status: Never used Tobacco Second Hand Smoke Exposure: No service: No Physical Exam Vital Signs: Last Vital Signs Pulse 124 H 07/28/23 10:32 BP 119/57 L 07/28/23 10:32 Eyes Other: Anicteric GI Other: Abdomen is soft, protuberant secondary to . All laparoscopic cholecystectomy wounds clean dry and intact healing well Assessment & Plan Assessment & Plan (1) Status post laparoscopic cholecystectomy: Code(s): Z90.49 - Acquired absence of other specified parts of digestive tract Plan From a postsurgical perspective, patient is doing well. She has been given local instructions, and will follow-up p.r.n.. All questions answered. Coding Level of Care Code Global (49103) Diagnoses Status post laparoscopic cholecystectomy Z90.49
== END 2023-07-28 10:43 | disposition home or self-care (01) ==
PROVIDERS: PCP Internal Medicine; Visit Provider Surgery
DX: Z90.49 Acquired absence of other specified parts of digestive tract (principal)
CPT/HCPCS: 99024

== ENCOUNTER → 2023-07-28 10:24 | Outpatient (BNVA) | payer OTHER, SELFPAY | PROVIDERS: PCP Internal Medicine; Visit Provider Surgery ==